=== PATIENT | male | born 1995 | race Caucasian/White ===

== ENCOUNTER 2023-05-09 20:35 | Emergency (ER) | payer OTHER ==
[~2023-05-09] VITALS: Ht 180.3 cm; Wt 90.7 kg
[2023-05-09 20:40] VITALS: BP 127/85; PULSE 72; RESP 17; TEMP 98.5; O2SAT 97
--- NOTE | 2023-05-09 20:40 | NUR ---
TO BED AMBULATORY
--- NOTE | 2023-05-09 20:58 | NUR ---
PT WENT TO CT
[2023-05-09 21:00] VITALS: BP 127/85; PULSE 72; RESP 17; TEMP 98.5; O2SAT 97
--- NOTE | 2023-05-09 22:00 | NUR ---
GIRLFRIEND AT THE BEDSIDE
[2023-05-09] MEDS ORDERED: IBUP-1842 PO (23:21)
--- NOTE | 2023-05-09 23:54 | NUR ---
Patient discharged with v/s stable. Written and verbal after care instructions given and explained. Patient verbalized understanding. Ambulatory with steady gait. All questions addressed prior to discharge. Advised to follow up with PMD.
== END 2023-05-09 23:54 | disposition home or self-care (01) ==
LOC: MED 20:35
DX: M54.2 Cervicalgia (principal); Z79.1 Long term (current) use of non-steroidal anti-inflammatories (NSAID)
CPT/HCPCS: 72050; 99283